=== PATIENT | male | born 1980 | race Caucasian/White ===

== ENCOUNTER 2016-10-31 18:47 | Emergency (ER) | payer BC ==
[2016-10-31 19:08] VITALS: BP 145/82; PULSE 76; TEMP 99.3; BMI 32.8
--- NOTE | 2016-10-31 22:14 | PDOC ---
History of Present Illness - General Chief Complaint: Injury Stated Complaint: KNEE INJURY Time Seen by Provider: 10/31/16 20:31 History Source: Patient Exam Limitations: No Limitations - History of Present Illness Initial Comments: 10/31/16 22:09 CHIEF COMPLAINT: Unstable left knee HISTORY OF PRESENT ILLNESS: Patient is a 36-year-old female denies any significant medical history currently on no medication states today he was getting into the truck at work and his left knee became unstable and he fell to the floor. Patient with unstable left knee, no deformity, no erythema edema, no lacerations or abrasions. REVIEW OF SYSTEMS: GENERAL: Afebrile, A&O x3 RESPIRATORY: No cough, wheezing, or hemoptysis. CARDIAC: No CP or SOB MUSCULOSKELETAL: Pain to left anterior and lateral knee SKIN : No erythema, no edema, no bruising, no deformity. NEUROLOGICAL: Denies any numbness or tingling. PHYSICAL EXAM: GENERAL: The patient is awake, alert, and fully oriented, in no acute distress. HEAD: Normal with no signs of trauma. RESPIRATORY: Lungs clear bilaterally no rhonchi, rales, or wheezes CARDIAC: S1-S2 audible, no murmur rub or gallop EXTREMITIES: Decreased range of motion to left knee related to pain, no fluid appreciated, no bulge sign. No pain to superior or inferior patella. Negative drop test. Negative posterior leg test. No joint laxity noted, no ecchymosis, no deformity, no abrasions ,no edema. +3 popliteal pulse. Negative Homans sign. No calf pain or tenderness, no erythema or edema. MUSCULOSKELETAL: No spinal point tenderness. SKIN: Warm, Dry, normal turgor, no erythema, no edema no bruising. Past History - Past Medical History Allergies/Adverse Reactions: Allergies Allergy/AdvReac Type Severity Reaction Status Date / Time No Known Allergies Allergy Verified 10/31/16 19:03 Home Medications: Ambulatory Orders Meloxicam [Mobic] 15 mg PO ASDIR 10/31/16 Other medical history: DENIES - Immunization History Immunization Up to Date: Yes - Suicide/Smoking/Psychosocial Hx Smoking History: Current every day smoker Number of Cigarettes Smoked Daily: 6 Information on smoking cessation initiated: No Hx Alcohol Use: No Drug/Substance Use Hx: No Substance Use Type: None *Physical Exam - Vital Signs Last Vital Signs Temp Pulse Resp BP Pulse Ox 99.3 F 76 16 145/82 98 10/31/16 19:03 10/31/16 19:03 10/31/16 19:03 10/31/16 19:03 10/31/16 19:03 ED Treatment Course - RADIOLOGY Radiology Studies Ordered: Category Date Time Status KNEE 3 POS-LEFT [RAD] Stat Radiology 10/31/16 20:52 Completed Medical Decision Making - Medical Decision Making 10/31/16 22:11 A/P: Patient here for evaluation of unstable left knee sent to x-ray. There is a deformity of the proximal fibula on the lateral view and may be due to old trauma on x-ray also bipartite patella. There is no acute fracture dislocation , no joint effusion. I will place patient in knee immobilizer with strict follow -up for unstable knee with orthopedics. Patient verbalized understanding will follow-up. 10/31/16 22:13 *DC/Admit/Observation/Transfer Diagnosis at time of Disposition: Unstable knee Qualifiers: Laterality: left Qualified Code(s): M25.362 - Other instability, left knee - Discharge Dispostion Disposition: HOME Condition at time of disposition: Good Admit: No - Referrals Referrals: Malik Oropeza MD [Staff Physician] - Tom Edouard MD [Staff Physician] - Ford Garcia MD [Staff Physician] - - Patient Instructions Printed Discharge Instructions: How to Use a Knee Immobilizer Additional Instructions: 1. Please return to the emergency department with any redness, swelling, increased pain, or any other concerns. 2. Keep splint on because of unstable knee 3. Please follow up in the office of orthopedics within a week for evaluation 4. No weightbearing 5. Ice and elevate when at rest. 6. Motrin for pain - Post Discharge Activity Forms/Work/School Notes: Back to Work
== END 2016-10-31 22:25 | disposition home or self-care (01) ==
LOC: JERFT 18:47
PROC: 2W3RXYZ Immobilization of Left Lower Leg using Other Device (ICD-10-PCS; principal; 2016-10-31)
DX: M25.362 Other instability, left knee (principal); V48.4XXA Person boarding or alighting a car injured in noncollision transport accident, initial encounter; Y92.488 Other paved roadways as the place of occurrence of the external cause; Y93.89 Activity, other specified; Y99.0 Civilian activity done for income or pay
CPT/HCPCS: 73562-TC-LT; 99281-25